=== PATIENT | female | born 1995 | race Caucasian/White ===

== ENCOUNTER 2018-11-01 10:39 | Emergency (ER) | payer OTHER ==
[~2018-11-01] VITALS: Ht 157.5 cm; Wt 79.4 kg
[2018-11-01 10:49] VITALS: BP 135/78
[2018-11-01] MEDS ORDERED: LIDOCAINE 1% 500 MG/50 ML VIAL INJ SCH (12:15)
[2018-11-01] MEDS ORDERED: LIDOCAINE MPF 1% - 5 mL VIAL 5 ML ONE (12:19)
[2018-11-01 13:12] VITALS: BP 130/76
== END 2018-11-01 13:12 | disposition home or self-care (01) ==
LOC: MED 10:39
DX: S61.211A Laceration without foreign body of left index finger without damage to nail, initial encounter (principal); W26.8XXA Contact with other sharp object(s), not elsewhere classified, initial encounter; Y93.89 Activity, other specified; Y92.89 Other specified places as the place of occurrence of the external cause; Y99.8 Other external cause status
CPT/HCPCS: 12001; 99283; J2001

== ENCOUNTER 2018-11-11 13:46 | Emergency (ER) | payer OTHER ==
[~2018-11-11] VITALS: Ht 157.5 cm; Wt 80.5 kg
[2018-11-11 14:10] VITALS: BP 144/92
[2018-11-11 16:35] VITALS: BP 131/98
== END 2018-11-11 16:35 | disposition home or self-care (01) ==
LOC: MED 13:46
DX: S61.211D Laceration without foreign body of left index finger without damage to nail, subsequent encounter (principal); X58.XXXD Exposure to other specified factors, subsequent encounter
CPT/HCPCS: 99283